=== PATIENT | male | born 1995 | race Caucasian/White ===

== ENCOUNTER 2018-02-10 21:00 | Emergency (ER) | payer OTHER ==
--- NOTE | 2018-02-10 21:38 | XRAY Report ---
Reason: football injury Procedure Date: 02/10/2018 Accession Number: [id number] / [id number] Procedure: XR - Ankle 3 View LT CPT Code: FULL RESULT: EXAM: LEFT ANKLE RADIOGRAPHY EXAM DATE: 02/10/2018 09:27 PM. CLINICAL HISTORY: Acute left ankle pain status post a sports related injury on the same date as this examination. COMPARISON: None. TECHNIQUE: 3 views. FINDINGS: Bones: Normal bone mineralization. No fractures or bone lesions. Joints: Normal. No effusion. No subluxations. The ankle mortise is normally aligned. Soft Tissues: No appreciable soft tissue swelling. IMPRESSION: Normal left ankle radiography. [facility]
--- NOTE | 2018-02-10 23:27 | ED Physician Documentation ---
PD HPI LOWER EXT INJURY - Stated complaint Stated Complaint: ANKLE INJURY - Chief complaint Chief Complaint: Trauma Ext - History obtained from History obtained from: Patient - History of Present Illness PD HPI LOW EXT INJURY LOCATION: Left, Ankle Type of injury: Twist (while playing football) Timing - onset: Today Timing - duration: Hours Timing - details: Abrupt onset, Still present Worsened by: Moving, Palpating, Other (walking) Associated symptoms: Swelling. No: Weakness, Numbness Similar symptoms before: Has not had sx before Recently seen: Not recently seen Review of Systems Skin: denies: Abrasion (s), Laceration (s) Musculoskeletal: reports: Joint swelling Neurologic: denies: Focal weakness, Numbness PD PAST MEDICAL HISTORY - Past Medical History Past Medical History: No - Past Surgical History Past Surgical History: No - Present Medications Home Medications: Ambulatory Orders Medication Instructions Recorded Confirmed Ibuprofen 600 mg PO TID PRN #25 tablet 02/11/18 Tramadol HCl 50 mg PO Q6H PRN #15 tablet 02/11/18 - Allergies Allergies/Adverse Reactions: Allergies Allergy/AdvReac Type Severity Reaction Status Date / Time No Known Drug Allergies Allergy Verified 02/10/18 21:14 - Social History Does the pt smoke?: No Smoking Status: Never smoker Does the pt drink ETOH?: No Does the pt have substance abuse?: No - Immunizations Immunizations are current?: Yes - POLST Patient has POLST: No PD ED PE NORMAL - Vitals Vital signs reviewed: Yes - General General: Alert and oriented X 3, No acute distress, Well developed/nourished - Derm Derm: Normal color, Warm and dry - Extremities Extremities: Other (left ankle tender anterolateral with some swelling. Also some tenderness lateral lower leg along muscle. Not tender at proximal fibula, nor at medial ankle nor arch of the foot. No gross laxity with inversion stress, but limited with some guarding due to pain. ) - Neuro Neuro: No motor deficit, No sensory deficit Results - Vitals Vitals: Oxygen O2 Source Room air - Rads (name of study) left ankle Radiology: Prelim report reviewed (no fractures), EMP read contemporaneously PD MEDICAL DECISION MAKING - ED course Complexity details: reviewed results, considered differential (most tender at l eft ATFL, but some pain and tender at peroneal muscle so combo of sprain/strain. ), d/w patient Departure - Departure Disposition: 01 Home, Self Care Clinical Impression: Ankle sprain Qualifiers: Encounter type: initial encounter Involved ligament of ankle: anterior talofibular ligament Laterality: left Qualified Code(s): S93.492A - Sprain of other ligament of left ankle, initial encounter Condition: Stable Record reviewed to determine appropriate education?: Yes Instructions: ED Sprain Ankle Follow-Up: [facility] [Provider Group] Prescriptions: Ibuprofen 600 mg PO TID PRN #25 tablet PRN Reason: Pain Tramadol HCl 50 mg PO Q6H PRN #15 tablet PRN Reason: Pain Comments: Roc wrap and splint to reduce swelling and to support the ankle while its healing. Wear this for the next couple of weeks until fully healed. Crutches initially if needed for pain of weightbearing. Progress weightbearing as able. Ibuprofen 3 times a day for the next several days to week. Add Tylenol or tramadol if needed for pains. Minimal activity on the ankle initially while its healing. Follow-up with your primary care in about 4-5 days. Forms: Activity restrictions Discharge Date/Time: 02/11/18 00:14
[2018-02-10] MEDS ORDERED: traMADol 50 MG TABLET PO STA (23:44)
[2018-02-10] MEDS ORDERED: IBUPROFEN 600 MG TABLET PO STA (23:44)
[2018-02-11 00:22] VITALS: BP 126/64
== END 2018-02-11 00:14 | disposition home or self-care (01) ==
LOC: ED 21:00
DX: S93.492A Sprain of other ligament of left ankle, initial encounter (principal); W51.XXXA Accidental striking against or bumped into by another person, initial encounter; X50.1XXA Overexertion from prolonged static or awkward postures, initial encounter; Y93.61 Activity, american tackle football
CPT/HCPCS: 73610; 99283; 99284; A9270

== ENCOUNTER 2019-10-16 20:23 | Emergency (ER) | payer OTHER ==
[2019-10-16] MEDS ORDERED: BUFFERED LIDOCAINE 10 ML SYRINGE SUBQ STA (20:55)
--- NOTE | 2019-10-16 21:07 | ED Physician Documentation ---
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[employer], up-to-date on tetanus cut his right thumb on a sharp metal edge at work just prior to arrival.) Review of Systems Constitutional: reports: Reviewed and negative Ears: reports: Reviewed and negative Nose: reports: Reviewed and negative Cardiac: reports: Reviewed and negative Respiratory: reports: Reviewed and negative PD PAST MEDICAL HISTORY - Past Surgical History Past Surgical History: No - Present Medications Home Medications: Ambulatory Orders Medication Instructions Recorded Confirmed Ibuprofen 600 mg PO TID PRN #25 tablet 02/11/18 Tramadol HCl 50 mg PO Q6H PRN #15 tablet 02/11/18 - Allergies Allergies/Adverse Reactions: Allergies Allergy/AdvReac Type Severity Reaction Status Date / Time No Known Drug Allergies Allergy Verified 10/16/19 20:29 - Social History Does the pt smoke?: No Smoking Status: Never smoker Does the pt drink ETOH?: No Does the pt have substance abuse?: No - Immunizations Immunizations are current?: Yes - POLST Patient has POLST: No PD ED PE NORMAL - Vitals Vital signs reviewed: Yes - General General: Alert and oriented X 3, No acute distress - Extremities Extremities: Other (There is a 1 cm laceration over the distal proximal thumb, just into subcutaneous tissue and fat. Extensor tendon strength and distal neurovascular status are normal.) - Neuro Neuro: Alert and oriented X 3, Normal speech Results - Vitals Vitals: Vital Signs - 24 hr 10/16/19 20:29 Temperature 36.5 C Oxygen O2 Source Room air Procedures - Laceration (location) Right thumb Length in cm: 1 Wound type: Linear Neurovascular status: Sensory intact, Motor intact, Vascular intact Tendon involvement: Tendon intact Anesthesia: Lidocaine 1%, With bicarb Wound Preparation: Irrigated copiously NS Skin layer closure: Nylon, Interrupted (3), Size #-0 - enter number (5-0) Other: Patient tolerated well, Neurovascular intact Complexity: Simple Departure - Departure Disposition: 01 Home, Self Care Clinical Impression: Laceration of thumb Qualifiers: Encounter type: initial encounter Damage to nail status: without damage Foreign body presence: without foreign body Laterality: right Qualified Code(s): S61.011A - Laceration without foreign body of right thumb without damage to nail, initial encounter Condition: Good Record reviewed to determine appropriate education?: Yes Instructions: ED Laceration Hand Comments: Come back for any signs of infection which would include: Redness, swelling, drainage, increased pain, or fevers. You can wash it soap and water. Keep it covered and moist with bacitracin ointment which is available over the counter; avoid neosporin. Follow-up with your physician in 14 days for suture removal. Forms: Activity restrictions
== END 2019-10-16 21:17 | disposition home or self-care (01) ==
LOC: ED 20:23
DX: S61.011A Laceration without foreign body of right thumb without damage to nail, initial encounter (principal); W26.8XXA Contact with other sharp object(s), not elsewhere classified, initial encounter; Y92.89 Other specified places as the place of occurrence of the external cause; Y99.1 Military activity
CPT/HCPCS: 12001; 99282

== ENCOUNTER 2019-10-17 13:38 | Outpatient (CLI) | payer OTHER ==
--- NOTE | 2019-10-17 15:26 | MRI Report ---
PROCEDURE: Lumbar Spine W/O INDICATIONS: LOW BACK PAIN TECHNIQUE: Noncontrast sagittal T1 spin echo and T2 fast echo, sagittal STIR, axial T1 and T2 fast spin echo thr ough the lumbar spine. In cases with scoliosis, additional coronal T2 fast spin echo may be performe d. COMPARISON: None. FINDINGS: Image quality: Excellent. Alignment and Curvature: There is normal bony alignment. Bone Marrow: Marrow is of normal overall signal. No acute vertebral body compression fractures. Spinal Cord: Conus medullaris terminates at the L1 level. Visualized cord demonstrates normal signa l and size. Paraspinous Soft Tissues: No paravertebral masses. T12-L1: Normal in appearance. L1-L2: Normal in appearance. L2-L3: Normal in appearance. L3-L4: Normal in appearance. L4-L5: Normal in appearance. L5-S1: Loss of disc signal. Mild, diffuse disc bulge. Mild bilateral facet hypertrophy. No central stenosis. Moderate bilateral neural foraminal narrowing. No neural compression. Fissure noted in the posterior disc annulus. IMPRESSION: 1. Mild L5-S1 degenerative disc disease. 2. Mild L5-S1 facet arthropathy. 3. No central stenosis. 4. Moderate bilateral L5-S1 neural foraminal narrowing. 5. No neural compression. 6. L5-S1 disc annulus fissure. Reviewed by: Lilian Figueroa MD, PhD on 10/17/2019 3:25 PM PDT Approved by: Lilian Figueroa MD, PhD on 10/17/2019 3:25 PM PDT Station ID: [id number]
== END 2019-10-17 13:39 | disposition home or self-care (01) ==
LOC: DI 13:38
DX: M47.817 Spondylosis without myelopathy or radiculopathy, lumbosacral region (principal); M51.37 Other intervertebral disc degeneration, lumbosacral region; M48.07 Spinal stenosis, lumbosacral region
CPT/HCPCS: 72148

== ENCOUNTER 2020-05-23 08:33 | Emergency (ER) | payer OTHER ==
[2020-05-23 08:41] VITALS: BP 139/89
[2020-05-23] MEDS ORDERED: LIDOCAINE 1%-EPI 1:100000 20 ML MDV SUBQ STA (08:41)
--- NOTE | 2020-05-23 08:42 | ED Physician Documentation ---
PD HPI SKIN - Stated complaint Stated Complaint: TAILBONE PX - Chief complaint Chief Complaint: Back Pain - History obtained from History obtained from: Patient - Additional information Additional information: About 4 to 5 days worth of pain from the tailbone. There was no injury. It hurts to sit and he feels better if he is on his side. Never had this before. He does have a history of low back pain but this is different. Nonradiating. Review of Systems Ten Systems: 10 systems reviewed and negative Constitutional: reports: Reviewed and negative Eyes: reports: Reviewed and negative Ears: reports: Reviewed and negative Nose: reports: Reviewed and negative PD PAST MEDICAL HISTORY - Past Surgical History Past Surgical History: No - Present Medications Home Medications: Ambulatory Orders Medication Instructions Recorded Confirmed Ibuprofen 600 mg PO TID PRN #25 tablet 02/11/18 Tramadol HCl 50 mg PO Q6H PRN #15 tablet 02/11/18 - Allergies Allergies/Adverse Reactions: Allergies Allergy/AdvReac Type Severity Reaction Status Date / Time No Known Drug Allergies Allergy Verified 05/23/20 08:41 - Social History Does the pt smoke?: No Smoking Status: Never smoker Does the pt drink ETOH?: No Does the pt have substance abuse?: No - Immunizations Immunizations are current?: Yes - POLST Patient has POLST: No PD ED PE NORMAL - Vitals Vital signs reviewed: Yes - General General: Alert and oriented X 3, No acute distress - Back Back: No spinal TTP, Other (Suggestion of swelling at the top of the gluteal crease consistent with probably an early pilonidal abscess.) - Derm Derm: Normal color, Warm and dry - Extremities Extremities: No edema, No calf tenderness / cord - Neuro Neuro: Alert and oriented X 3, Normal speech Results - Vitals Vitals: Vital Signs - 24 hr 05/23/20 08:39 Temperature 36.6 C Heart Rate 91 Blood Pressure 139/89 H O2 Saturation 98 Oxygen O2 Source Room air Procedures - Abscess I&D (location) Pilonidal Preparation: Betadine, Lidocaine 1%, With epi Incision: Incised with scalpel, Purulent drainage (a lot), Loculations broken, Packed (with 1/4 inch) Other: Pt tolerated well, Dressing applied Departure - Departure Disposition: 01 Home, Self Care Clinical Impression: Pilonidal abscess Condition: Good Record reviewed to determine appropriate education?: Yes Instructions: ED Cyst Pilonidal Infected IandD Comments: [place] packing removal. Return if worse. Forms: Activity restrictions
== END 2020-05-23 09:18 | disposition home or self-care (01) ==
LOC: ED 08:33
DX: L05.01 Pilonidal cyst with abscess (principal)
CPT/HCPCS: 10081